=== PATIENT | female | born 1940 | race Caucasian/White ===

== ENCOUNTER 2021-01-30 08:02 | Outpatient (CLI) | payer MEDICARE, SELFPAY | END 2021-01-30 08:03 | disposition home or self-care (01) | LOC: ANHAUDIO 08:05 | PROVIDERS: PCP Internal Medicine; Visit Provider Nurse Practitioner Family | DX: H90.3 Sensorineural hearing loss, bilateral (principal) | CPT/HCPCS: 92537; 92540; 92546; 92557; 92567 ==